=== PATIENT | male | born 1945 | race Caucasian/White ===

== ENCOUNTER → 2019-12-17 | Outpatient (CLI) | payer MEDICARE ==
[~2019-12-17] MED LIST: BICARB PO; LISI20TA5 OR; LISINAPRIL PO; PROT1TAB2 OR; TYLENOL #3 PO; VICO5TAB OR
--- NOTE | 2019-12-20 10:58 | REP ---
BILATERAL LOWER EXTREMITY ARTERIAL DOPPLER ULTRASOUND HISTORY: Atherosclerosis of the [place] arteries with intermittent claudication. FINDINGS: Ankle brachial indices could not be accomplished in either lower extremity due to noncompressible vessels. Minimal plaquing is observed. Relatively normal triphasic and biphasic waveforms are noted bilaterally throughout the arterial tree in the lower extremities. No stenosis or occlusion is appreciated. BILATERAL LOWER EXTREMITY ARTERIAL DOPPLER VELOCITY CHART RIGHT PSV (cm/s) LEFT PSV (cm/s) TRANSPORT TANK TECHNICIAN 111 94 Profunda 44 50 Proximal SFA 122 124 Mid SFA 118 106 Distal SFA 103 131 Popliteal 93 90 Proximal ROYA 59 82 Tibioperoneal trunk 75 74 Proximal AIRPLANE TECHNICIAN 88 89 Distal AIRPLANE TECHNICIAN 96 85 Distal ROYA 80 73 MTDD
== END ==
LOC: M RAD 10:48
PROVIDERS: ATTEND Physician Assistant
DX: I70.213 Atherosclerosis of native arteries of extremities with intermittent claudication, bilateral legs (principal)

== ENCOUNTER → 2019-12-24 | Outpatient (CLI) | payer MEDICARE ==
--- NOTE | 2019-12-24 12:36 | REP ---
INDICATION: VENOUS INSUFFICIENCY CHRONIC H/O VENOUS THROMBOSIS COMPARISON: 11/07/2015 TECHNIQUE: Joe scale and color Doppler evaluation of the bilateral lower extremity deep venous structures using linear high frequency transducer. FINDINGS: Right lower extremity demonstrates small focus of nonocclusive presumed chronic thrombus in the mid superficial femoral vein. Left lower extremity demonstrates extensive nonocclusive thrombus in the proximal to distal superficial femoral vein. IMPRESSION: Bilateral nonocclusive thrombus (left greater than right) possibly chronic. <Electronically signed by Carl Dempsey > 12/24/19 [id number]
== END ==
LOC: M RAD 11:35
PROVIDERS: ATTEND Physician Assistant
DX: I87.2 Venous insufficiency (chronic) (peripheral) (principal); Z86.718 Personal history of other venous thrombosis and embolism

== ENCOUNTER 2020-07-29 11:44 | Outpatient (CLI) | payer MEDICARE ==
[~2020-07-29] VITALS: Ht 172.7 cm; Wt 153.1 kg
[~2020-07-29 11:44] MED LIST changes: -LIDOCAINE 1% MDV 20ML VIAL As Ordered ONE
[2020-07-29] MEDS ORDERED: PIPERACILLIN/TAZOBACTAM SOD 3.375 GM in D5W MINI-BAG PLUS 50 ML IV ONE (13:00)
[2020-07-29 14:10] VITALS: BP 162/71
[2020-07-29] MEDS ORDERED: SODIUM CHLORIDE 0.9% INJ 10 ML SYR IV PRN (14:20)
[2020-07-29 15:05] VITALS: BP 168/71
[2020-07-29 15:45] VITALS: BP 158/72
[2020-07-29] MEDS ORDERED: SODIUM CHLORIDE 0.9% INJ 10 ML SYR IV SCH (18:00)
== END 2020-07-29 15:45 | disposition home or self-care (01) ==
LOC: M INFU 11:44
PROVIDERS: ATTEND Physician Assistant
DX: N39.0 Urinary tract infection, site not specified (principal); Z88.2 Allergy status to sulfonamides; Z88.6 Allergy status to analgesic agent; Z88.8 Allergy status to other drugs, medicaments and biological substances

== ENCOUNTER → 2020-07-29 | Outpatient (CLI) | payer MEDICARE ==
[~2020-07-29] MED LIST changes: +ACET650T61 PO; +ASPI81TA26 PO; +LIDOCAINE 1% MDV 20ML VIAL As Ordered ONE; +LOSA50TA88 PO
[2020-07-29 13:45] VITALS: BP 189/81
--- NOTE | 2020-07-29 17:07 | REP ---
PROCEDURE NAME: PICC LINE INSERTION W/SITERITE CLINICAL INFORMATION: PICC LINE. COMPARISON: None. PROCEDURE DESCRIPTION: The procedure was performed by SARTHAK Harrison, under the direct supervision of Dr. Almaraz. The risks and benefits of the procedure were explained to the patient and an informed consent was obtained both verbally and written. Directly prior to the start of the procedure a formal time-out was completed in the procedure room. The left cephalic vein was localized using ultrasound guidance. The skin was prepped and draped in sterile fashion. Four mL of 1% lidocaine 10 mg/mL was used as a local anesthetic. Using ultrasound guidance the left cephalic vein was cannulated, and a 0.018 guidewire was inserted and advanced to the level of SVC using fluoroscopic guidance. The needle was removed and a 4.5 [place] dilator and peel-away sheath was inserted over the guidewire. A 4.5 [place] single lumen catheter was cut to a length of 50 cm. The dilator was removed and the catheter was inserted over the guidewire with the tip ending at the level of the SVC. The peel-away sheath was removed and the catheter was flushed with heparinized saline as per hospital protocol. The catheter was affixed to the skin and a sterile dressing was applied. The patient tolerated the procedure well and there were no immediate complications. CONCLUSION: PICC line insertion into the left cephalic vein. 1.5 minutes of fluoroscopy time was utilized for this procedure. Some fluoroscopic images are performed with last image hold technology. These images require no additional radiation. <Electronically signed by Lyly Mckeon > 07/29/20 [id number] <Electronically signed by Rao Almaraz > 07/29/20 [id number]
== END ==
LOC: M IRPRO 11:41
PROVIDERS: ATTEND Physician Assistant
DX: N39.0 Urinary tract infection, site not specified (principal); Z88.2 Allergy status to sulfonamides; Z88.6 Allergy status to analgesic agent; Z88.8 Allergy status to other drugs, medicaments and biological substances
CPT/HCPCS: 76937; 96365; C1751; J1642; J1644; J2543